=== PATIENT | male | born 1930 | race Caucasian/White ===

== ENCOUNTER 2021-02-08 13:16 | Emergency (ER) | payer OTHER ==
[~2021-02-08] VITALS: Ht 180.3 cm; Wt 83.9 kg
--- NOTE | ~2021-02-08 | EMS ---
[address] [address] EMS Patient Care Report Name: CALVIN CHOPRA JR Room #: DEP BALDO Dominguez#: [id number] Admission: 02/08/21 Attend Phys: Discharge: 02/08/21 Date of : [birth year] Report #: [id number] THIS REPORT FOR: //name// Report Transmitted: 02/08/2021 19:29 EMS Care Summary [facility] MED-ACT Incident [id number] @ 02/08/2021 12:49 Incident Location [address] [place] [id number] Patient CALVIN CHOPRA Male, 89 Years 1930 Patient Address [address] [place] [id number] Patient History Dementia, Patient Allergies No known allergies, Chief Complaint right hip pain Disposition Transported No Lights/[facility] Reason Falls Transported To [facility] Narrative Medic 1149 responded for a elderly male patient and fell. Upon arrival patient was found sitting in his memory care room, laying on the floor on his right side and awake and alert. Airway is patent, breathing non-labored, skin warm dry pink patient communicates normally without difficulty. Patient states his [facility] [address] [place] [address] EMS Patient Care Report Name: CALVIN CHOPRA JR Room #: DEP BALDO Dominguez#: [id number] Admission: 02/08/21 Attend Phys: Discharge: 02/08/21 Date of : [birth year] Report #: [id number] right side hurts. Upon EMS assessment patient has no discernible injury. He is able to be set up where he states he still has pain "all over". Staff at the [facility] request EMS transport the patient to the closest emergency room for a position evaluation. Patient is moved to ambulance stretcher via [employer] carry. Once to stretcher, patient has no pain. She does have a history of arthritis, pain consistent with arthritic pain. Patient has no discernible evidence of outward trauma. Patient has no blood thinners and no evidence of striking his head. Patient has been vaccinated for COVID-19 since August. Patient has no changes during transport and arrived at [facility] without incident. Initial Vitals @13:07P: 71,BP: 164/86,SpO2: 92, @13:01P: 72,R: 14,BP: 164/89,Pain: 0/10,GCS: 15,Temp: 98.2F,Glucose: 112,SpO2: 98,Revised Trauma: 12, Assessments @13:10MENTAL:No Abnormalities,SKIN:No Abnormalities,HEENT:Head/Face: No Abnormalities,Eyes: No Abnormalities,Neck/Airway: No Abnormalities,LUNG SOUNDS:General: No Abnormalities,Left Upper: No Abnormalities,Right Upper: No Abnormalities,Left Lower: No Abnormalities,Right Lower: No Abnormalities,ABDOMEN:General: No Abnormalities,Left Upper: No Abnormalities,Right Upper: No Abnormalities,Left Lower: No Abnormalities,Right Lower: No Abnormalities,PELVIS//GI:No Abnormalities,EXTREMITIES:Right Arm: CONCEPCION,Right Leg: CONCEPCION,Left Arm: No Abnormalities,Left Leg: No Abnormalities,PULSE:NEURO:No Abnormalities, Impression Pelvic and Perineal Pain Procedures @13:11Surgical Mask on PatientResponse: Unchanged Timeline 12:48,Call Received 12:48,Psap Call 12:49,Dispatched 12:51,En Route 12:55,On Scene 12:58,At Patient 13:01,BP: 164/89 M,PULSE: 72,RR: 14 R,SPO2: 98 Ox,ETCO2: ,B,PAIN: 0,GCS: 15, 13:03,Depart Scene [address] [place] [address] EMS Patient Care Report Name: NAV MACKEYCALVIN Room #: DEP [facility]#: [id number] Admission: 02/08/21 Attend Phys: Discharge: 02/08/21 Date of : [birth year] Report #: [id number] 13:07,BP: 164/86 M,PULSE: 71,RR: R,SPO2: 92 Ox,ETCO2: ,BG: ,PAIN: ,GCS: , 13:11,Surgical Mask on Patient,Response: Unchanged 13:12,At Destination 13:33,Call Closed Disclaimer v1.1 Copyright 2020 [employer] This EMS Care Summary contains data elements from the applicable legal record (which may be displayed differently). It is designed to provide pertinent information for the following purposes: continuity of care, clinical quality, and state data reporting. The complete legal record is available to ED staff and administrators of the receiving hospital in [facility]'s Patient Tracker. All data is provided "as is."
[2021-02-08 13:18] VITALS: BP 128/77
[2021-02-08 15:11] LABS: ABSOLUTE NEUTROPHILS 4.9 thou/uL (1.4-8.2); BASOPHILS 0.4 % (0.0-2.0); EOSINOPHILS 1.3 % (0.0-3.0); HEMATOCRIT 42.9 % (42.0-52.0); HEMOGLOBIN 14.5 gm/dL (14.0-18.0); LYMPHOCYTES 27.3 % (24.0-44.0); MCH 31.6 pg (26.0-34.0); MCHC 33.9 g/dL (28.0-37.0); MCV 93.1 fL (80.0-100.0); MONOCYTES 7.9 % (1.0-8.0); PLATELET COUNT 213 thou/uL (150-400); POLYS 63.1 % (36.0-66.0); RDW 12.9 % (10.5-14.5); WBC 7.7 thou/uL (4.0-11.0)
[2021-02-08 15:11] LABS: CALCIUM 8.9 mg/dL (8.5-10.1); CREATININE 0.8 mg/dL (0.7-1.3); POTASSIUM 3.9 mmol/L (3.5-5.1)
[2021-02-08 15:15] LABS: ALBUMIN 2.9 g/dL (3.4-5.0); TOTAL BILIRUBIN 0.3 mg/dL (0.2-1.0); TOTAL PROTEIN 6.2 g/dL (6.4-8.2)
[2021-02-08] MEDS ORDERED: NORVASC10 MG PO (15:27)
[2021-02-08] MEDS ORDERED: ELIQUIS5 MG PO (15:27)
[2021-02-08] MEDS ORDERED: ABILIFY 5 MG TAB5 M1 PO (15:28)
[2021-02-08] MEDS ORDERED: VITAMIN C500 M2 PO (15:30)
[2021-02-08] MEDS ORDERED: PROPECIA1 MG PO (15:31)
[2021-02-08] MEDS ORDERED: ARICEPT10 M1 PO (15:31)
[2021-02-08] MEDS ORDERED: FLUOXETINE HCL40 MG PO (15:35)
[2021-02-08] MEDS ORDERED: LANTUS SUBQ (15:36)
[2021-02-08] MEDS ORDERED: TRAMADOL 50 MG50 MG PO (15:37)
[2021-02-08] MEDS ORDERED: LANTUSSOLASTAR SUBQ (15:37)
[2021-02-08 15:59] LABS: URINE BILIRUBIN NEGATIVE (Negative); URINE BLOOD NEGATIVE (Negative); URINE COLOR YELLOW; URINE GLUCOSE-RANDOM* NEGATIVE (Negative); URINE KETONES NEGATIVE (Negative); URINE NITRITE-REFLEX NEGATIVE (Negative); URINE PROTEIN (DIPSTICK) NEGATIVE (Negative); URINE UROBILINOGEN 0.2 E.U./dl (0.2-1.0)
[2021-02-08 16:02] LABS: URINE CLARITY HAZY; URINE LEUKOCYTES-REFLEX 3+ (Negative)
[2021-02-08 16:05] LABS: BACTERIA-REFLEX >30 Many /HPF (None Seen); CASTS None Seen /LPF (None Seen); CRYSTALS None Seen /LPF (None Seen); SQUAMOUS None Seen /LPF (0-3); URINE RBC None Seen /HPF (NONE SEEN); URINE WBC-REFLEX >25 Many /HPF (0-5)
[2021-02-08] MEDS ORDERED: AUGMENTIN 875-1 EACH PO (16:32)
--- NOTE | 2021-02-09 10:43 | EKG ---
[place] [address] [facility] [place] [address] ELECTROCARDIOGRAM REPORT Name: CALVIN CHOPRA JR [id number] Admission: 02/08/21 Attend Phys: Discharge: 02/08/21 Date of : [birth year] Report #: [id number] [facility] ED Test Date: 2021-02-08 Test Time: 14:34:19 Pat Name: CALVIN CHOPRA Department: Room: Gender: Ticket Seller: JCHAIREZ : 1930 Requested By: [employer] Order Number: [id number] MD: Jurgen Meeks Measurements Intervals [place] Rate: 66 P: 19 DE: 151 QRS: -5 QRSD: 69 T: 100 QT: 430 QTc: 451 Interpretive Statements Sinus rhythm Nonspecific T wave abnormality No previous ECG available for comparison Electronically Signed On 02-09-2021 10:43:33 CDT by Jurgen Meeks [email or web address] <ELECTRONICALLY SIGNED> By: Jurgen Meeks MD, [facility] 02/09/21 1043 1434 1434 Jurgen Meeks MD, FACC /EPI
== END 2021-02-08 16:42 | disposition home or self-care (01) ==
LOC: ER 13:16
PROVIDERS: Emergency Medicine
DX: R41.0 Disorientation, unspecified (principal); J18.9 Pneumonia, unspecified organism; N30.00 Acute cystitis without hematuria; E11.9 Type 2 diabetes mellitus without complications; Z20.822 Contact with and (suspected) exposure to COVID-19; Z79.4 Long term (current) use of insulin; Z79.891 Long term (current) use of opiate analgesic; Z79.899 Other long term (current) drug therapy